=== PATIENT | male | born 1955 | race African-American/Black ===

== ENCOUNTER 2024-03-26 07:42 | Emergency (ER) | payer MEDICAID, OTHER ==
[~2024-03-26] VITALS: Ht 180.3 cm; Wt 90.0 kg
[2024-03-26 07:53] VITALS: O2SAT 96
[2024-03-26 09:00] VITALS: BP 134/78; PULSE 77; RESP 20; TEMP 98.7
[2024-03-26] MEDS ORDERED: AMOX1TAB16 MT (09:02)
== END 2024-03-26 09:54 | disposition home or self-care (01) ==
LOC: ER 08:35
DX: K04.7 Periapical abscess without sinus (principal); I10 Essential (primary) hypertension
CPT/HCPCS: 99283